=== PATIENT | male | born 2000 | race Caucasian/White ===

== ENCOUNTER 2023-05-15 15:38 | Emergency (ER) | payer SELFPAY ==
[2023-05-15 15:49] VITALS: BP 123/67; PULSE 101; RESP 16; TEMP 36.9; O2SAT 100
--- NOTE | 2023-05-15 15:59 | ED.NAVMDI ---
HPI - Nausea/Vomiting/Diarrhea General Chief complaint: Nausea/Vomiting/Diarrhea Stated complaint: Vomiting/Diarrhea History of Present Illness HPI Narrative: Patient presents with nausea vomiting and diarrhea this started after eating at a Turkish restaurant last night. Patient states he is scheduled to work tomorrow and is not sure that he will be able to go to work. Patient reports tolerating liquids well at present. Related Data Allergies Allergy/AdvReac Type Severity Reaction Status Date / Time No Known Allergies Allergy Verified 05/15/23 15:57 Review of Systems Review of Systems: CONSTITUTIONAL: Denies fever, chills, or sweats. EYES: Denies visual changes, redness, or discharge. ENT: Denies rhinorrhea, congestion, sore throat, or otalgia. CARDIOVASCULAR: Denies chest pain, palpitations, or edema. RESPIRATORY: Denies cough or dyspnea. GASTROINTESTINAL: Denies abdominal pain, nausea, vomiting, or diarrhea. GENITOURINARY: Denies dysuria or hematuria. SKIN: Denies rash or itching. MUSCULOSKELETAL: Denies back pain, joint pain, or myalgia. NEUROLOGIC: Denies headache, numbness, or weakness. PSYCHIATRIC: Denies anxiety or depression. PMFSH Comments At time of signature, agree with nursing past medical, surgical, social and family history. There is no relevant family history pertinent to the presenting complaint Exam Narrative: GENERAL: Well-appearing, well-nourished, and in no acute distress. HEAD: Normocephalic, atraumatic. EYES: PERRLA and EOMI. ENT: Nares clear, no rhinorrhea or epistaxis. Mucous membranes moist. NECK: Supple. CHEST: Clear to auscultation. No respiratory distress. HEART: Regular rate and rhythm. No murmur heard. Normal peripheral pulses. ABDOMEN: Soft, nontender, nondistended, normal active bowel sounds. EXTREMITIES: Normal range of motion. No edema. SKIN: Warm, dry, no rash. NEURO: No focal deficits. Alert and oriented x3. [place] Coma Scale Eye Opening: Spontaneous 4 [place] Coma Scale Motor: Obeys Commands 6 [place] Coma Scale Verbal: Oriented 5 Jennifer Coma Scale Total 15 Course Course Level of Care: Express Care Visit Vital Signs Vital signs: Vital Signs Temperature 36.9 C 05/15/23 15:49 Pulse Rate 101 H 05/15/23 15:49 Respiratory Rate 16 05/15/23 15:49 Blood Pressure 123/67 05/15/23 15:49 Pulse Oximetry 100 05/15/23 15:49 Oxygen Delivery Room Air 05/15/23 15:49 Temperature 36.9 C 05/15/23 15:49 Pulse Rate 101 H 05/15/23 15:49 Respiratory Rate 16 05/15/23 15:49 Blood Pressure 123/67 05/15/23 15:49 Pulse Oximetry 100 05/15/23 15:49 Oxygen Delivery Room Air 05/15/23 15:49 Discharge Plan Discharge Clinical Impression: Nausea & vomiting Patient Disposition: Home, Self-Care Condition: Stable Instructions: Acute Nausea and Vomiting (DC) Additional Instructions: Clear liquids for the next 8-10 hours, then advance to a bland diet as tolerated A bland diet can consist of--BRAT diet which is bananas, rice, applesauce, and toast Avoid fried, greasy, fatty, fried foods Avoid caffeine, nicotine, and alcohol Return to your regular diet in the next 3-4 days Medication as directed for nausea and vomiting -If you have any worsening of symptoms or any other concerns please go to the ED immediately. Prescriptions: New omeprazole 40 mg capsule,delayed release(DR/EC) 40 mg PO DAILY Qty: 30 0RF Follow-up/Referrals: PHYSICIAN,PUBLIC RECORDS RESEARCHER [Primary Care Provider] - Stand Alone Forms: Work/School Release IP
== END 2023-05-15 16:08 | disposition home or self-care (01) ==
PROVIDERS: Emergency Provider Nurse Practitioner Family
DX: R11.2 Nausea with vomiting, unspecified (principal)
CPT/HCPCS: 99213; G0463

== ENCOUNTER 2024-08-17 20:22 | Emergency (ER) | payer BC, SELFPAY ==
[2024-08-17 20:23] VITALS: BP 119/80; PULSE 73; RESP 14; TEMP 36.6; O2SAT 98
--- OUTSIDE RECORDS SUMMARY | 2024-08-17 20:25 | XMS_ITS | Clinical Summary ---
Author Organization [facility] Address [address] [place] [address] Phone Care Team Providers Care Yard Worker Name Role Phone Jeramy Mccartney MD Primary Care Provider Allergies No known active allergies Medications OMEPRAZOLE PO Take by mouth daily. Active Social History Tobacco Use Types Packs/Day Years Used Date Smoking Tobacco: Never Smokeless Tobacco: Never Alcohol Use Standard Drinks/Week Comments No 0 (1 standard drink = 0.6 oz pur e alcohol) Sex and Gender Information Value Date Recorded Sex Assigned at Not on file Legal Sex Male 8:13 PM CDT Gender Identity Not on file Sexual Orientation Not on file Last Filed Vital Signs Vital Sign Reading Time Taken Comments Blood Pressure 124/84 06/12/2018 7:29 PM CUPOLA TAPPER Pulse 96 06/12/2018 7:29 PM CUPOLA TAPPER Temperature 37.4 C (99.4 F) 06/12/2018 6:50 PM CUPOLA TAPPER Respiratory Rate 18 06/12/2018 7:29 PM CUPOLA TAPPER Oxygen Saturation 98% 06/12/2018 7:29 PM CUPOLA TAPPER Inhaled Oxygen Concentration - - Weight 71.2 kg (157 lb) 06/12/2018 6:50 PM CUPOLA TAPPER Height 174 cm (5' 8.5 ) 06/12/2018 6:50 PM CUPOLA TAPPER Body Mass Index 23.52 06/12/2018 6:50 PM CUPOLA TAPPER Plan of Treatment Health Maintenance Due Date Last Done Comments Hepatitis C Virus (HCV) Screening 2001 Human Papillomavirus (HPV) Immunization (1 - Male 3-dose series) 2016 Meningococcal B Immunization (2 of 2 - Bexsero SCDM 2-dose series) 04/07/2019 10/06/2018 Influenza Immunization (#1) 2023 02/11/2012 SARS-COV-2 Immunization (3 - 2023-25 season) 2023 10/07/2020, 09/16/2020 Respiratory Syncytial Virus (RSV) Immunization (Adult) (1 - 1-dose 75+ series) 2076 Hepatitis B Immunization Completed 002, 2001, 2001, Additional history exists Pneumococcal Immunization Combined Aged Out 05/18/2004, 11/16/2002, 2001, Additional history exists No longer eligible based on patient's age to complete this topic Hepatitis A Immunization Discontinued 006, 07/08/2005, 05/18/2004, Additional history exists Measles Mumps Rubella (MMR) Immunization Discontinued 08/19/2005, 05/29/2002 Polio (IPV) Immunization Discontinued 05/20/2006 Varicella Immunization Discontinued 05/20/2006, 2002 DTaP/Tdap/Td Immunization Discontinued 2011, 05/20/2006, 08/20/2002, Additional history exists TdaP Immunization Completed 12/03/2011 Meningococcal Immunization (ACWY) Completed 02/10/2018, 09/15/2012 Rotavirus Immunization Aged Out No lo nger eligible based on patient's age to complete this topic Insurance MEDICAID [facility] [employer] Care Teams Yard Worker Relationship Specialty Start Date End Date Jeramy Mccartney MD [address] [place] [address] PCP - General Pediatrics 12/28/17
--- OUTSIDE RECORDS SUMMARY | 2024-08-17 20:25 | XMS_ITS | Clinical Summary ---
Author Organization [facility] Address [address] [place] [address] Care Team Providers Care Maintenance Technician Name Role Phone Sameer Lee MD Primary Care Provider [phone] Allergies No known active allergies Medications No known medications Active Problems Problem Noted Date Diagnosed Date BMI (body mass index), pedia tric, greater than or equal to 95% for age 0710/24/2015 Resolved Problems Problem Noted Date Diagnosed Date Resolved Date BMI (body mass index), pedia tric, 85% to less than 95% for age 0105/15/2014 10/24/2015 Immunizations Immunization Administration Dates Next Due (ADACEL/BOOSTRIX)(10 YR UP) TDAP VACCINE, 0.5ML, IM 12/03/2011 (GARDASIL)(9-45 YRS) HUMAN PAPILLOMAVIRUS VACCINE, TYPES 6, 11, 16, 18, QUADRIVALENT (4VHPV), 3 DOSE, IM 07/26/2014,2014 (INFANRIX)(6 WKS-6 YRS) DIPT HERIA, TETANUS TOXOIDS, AND ACCELLULAR PERTUSSIS VACCINE (DTAP), 0.5 ML IM 05/20/2006,08/20/2002,02/13/2002,11/21,2001 (IPOL)(6 WKS AND UP) POLIOVI ABELINO VACCINE, INACTIVATED (IPV), 3 DOSE, SUBCUT OR IM 05/20/2006,11/16/2002,2001,08/22 (M-M-R II/PRIORIX)(12 MO UP) MEASLES, MUMPS AND RUBELLA VIRUS VACCINE, 0.5 ML IM/SUBCUT 08/19/2005,05/29/2002 (VARIVAX)(12 MOS UP)VARICELL A VIRUS VACCINE (PF) 0.5 ML, SUB CUT 05/20/2006,08/20/2002 HIB, Unspecified Formulation 08/20/2002, 02/13/2002,2001,08/22 Hepatitis A Vaccine 07/08/2005,05/18/2004 Hepatitis B Vaccine 2001,2001,2001 Influenza Seasonal Unspecifi ed Formulation IM 03/23/2006,04/14/2005 Meningococcal A Conjugate Vaccine IM 2014 PREVNAR (PCV13) pneumococcal 13-valent conjugate Vaccine 05/18/2004,11/16/2002,2001,08/22 Family History Medical History Relation Name Comments Cancer Maternal Grandmother Relation Name Status Comments Maternal Grandmother Social History Tobacco Use Types Packs/Day Years Used Date Smoking Tobacco: Never Smokeless Tobacco: Never Sex and Gender Information Value Date Recorded Sex Assigned at Not on file Legal Sex Male 12:39 PM ENVIRONMENTAL SCIENCE PROGRAM DIRECTOR Gender Identity Not on file Sexual Orientation Not on file Last Filed Vital Signs Vital Sign Reading Time Taken Comments Blood Pressure 119/72 10/24/2015 10:58 AM CDT Pulse 75 10/24/2015 10:58 AM CDT Temperature 36.7 C (98.1 F) 10/24/2015 10:58 AM CDT Respiratory Rate - - Oxygen Saturation - - Inhaled Oxygen Concentration - - Weight 73 kg (161 lb) 10/24/2015 10:58 AM CDT Height 165.1 cm (5' 5 ) 10/24/2015 10:58 AM CDT Body Mass Index 26.79 10/24/2015 10:58 AM CDT Plan of Treatment Health Maintenance Due Date Last Done Comments HPV VACCINES (3 - Male 2-dos e series) 11/12/2014 07/26/2014, 2014 DTAP/TDAP/TD VACCINES (7 - T d or Tdap) 12/02/2021 12/03/2011, 05/20/2006, 08/20/2002, Additional history exists INFLUENZA VACCINE (#1) 2023 03/23/2006, 2004 HEPATITIS B VACCINES Completed 2001, 2001, 2001 Care Teams Maintenance Technician Relationship Specialty Start Date End Date Sameer Lee MD PCP - General Pediatrics 05/15/14
--- OUTSIDE RECORDS SUMMARY | 2024-08-17 20:25 | XMS_ITS | Patient Health Record ---
Author Organization [facility] Address [address] [place] [address] Care Team Providers Care Teaching Specialists Name Role Phone Balbir Sierra Primary Care Provider Allergies No Known Allergies Reason For Referral No Information Medications Medication SIG (Take, Route, Fr equency, Duration) Notes Start Date End Date Status lamoTRIgine ER 50 MG 1 tablet Orally Onc e a day for 30 days Active lamoTRIgine 25 MG as directed Orally a s directed for 15 day(s) 08/17/2021 Active lamoTRIgine 50 MG 1 tablet Orally Once a day for 30 day(s) 08/17/2021 Active hydrOXYzine HCl 25 MG 1-2 tablets prn an xiety Orally every 8 hrs for 30 day(s) Active Social History Tobacco Use: Social History Observation Description Date Details (start date - stop date) Unknown Sex Assigned At : Social History Observation Description Sex Assigned At Male Dont use, Tobacco Use/Smoking Question Answer Notes Are you a Uses tobacco in other forms Additional Findings: Tobacco User e-Cigarette Problems Problem Type SNOMED Code ICD Code Onset Dates Problem Status W/U Status Risk Notes Problem Generalized anxiety disorder (42983017) Generalized anxiety disorder (F41.1) Active confirmed Problem Vitamin D deficiency (51643998) Vitamin D insufficiency (E55.9) Active confirmed Problem Mood disorder (33292002) Mood disorder (F39) Active confirmed BIPOLAR II LIKELY Plan Of Treatment No Information Insurance Providers Payer Name Payer Address Payer Phone Subscriber Number Group Number Insured Name Patient Relationship to Insured Coverage Start Date Coverage End Date [employer] [address] [place] [address] [id number] Rickey Castellanos Self - patient is the insured 2 [employer] (Group) [address] [place] [address] [id number] Rickey Castellanos Self - patient is the insured 2 Medical (General) History Surgical History Surgery Date(Month/Year)
--- OUTSIDE RECORDS SUMMARY | 2024-08-17 20:25 | XMS_ITS | Clinical Summary ---
Author Organization [address] Address [address] [place] [phone] Care Team Providers Care Bundle Sorter Name Role Phone Silvia Lopez NP Primary Care Provider [phone] Allergies No known active allergies Medications No known medications Active Problems Problem Noted Date Diagnosed Date RUQ abdominal pain 05/26/2023 Assessment & Plan (05/26/2023 2:22 PM COMPLIANCE SPECIALIST): Acute right upper quadrant pain is resolved at present Abdomen is benzol still operator to palpation Discussed gallbladder dysfunction and need to restrict fats in the diet. Instructed to seek treatment if the symptoms resume and if they are intense to go to the emergency room He did not want any labs done or an ultrasound ordered Class 1 obesity due to exces s calories without serious comorbidity with body mass index (BMI) of 30.0 to 30.9 in adult 05/26/2023 Assessment & Plan (05/26/2023 2:19 PM COMPLIANCE SPECIALIST): BMI 30.09 Discussed diet and exercise Recommend weight loss Generalized anxiety disorder 05/23/2023 Mood disorder 05/23/2023 Vitamin D deficiency 05/23/2023 Sternum pain 11/22/2019 Fall 11/22/2019 Immunizations Immunization Administration Dates Next Due DTaP 05/20/2006, 3,02/13/2002,11/21,2001 HPV, Quadrivalent 07/26/2014,2014 Hep A, Adult 07/08/2005,05/18/2004 Hep A, Unspecified 07/08/2005,05/18/2004 Hep B Vaccine 2001,2001,2001 Hep B, Unspecified 2001,2001, 002 HiB 08/20/2002, 2,2001,08/22 IPV 05/20/2006, 3,2001,08/22 Influenza, Trivalent, IM (MDV) 03/23/2006,2004 Influenza, Unspecified 05/24/2024(Deferr ed: Patient Refused),01/30/2024(Deferred: Patient Refused),05/26/2023(Deferred: Patient Refused),04/04/2023(Deferred: Patient Refused),02/11/2012 MMR 08/19/2005,05/29/2002 Meningococcal B, OMV (Bexsero) 10/06/2018 Meningococcal Conjugate (Menveo) 2014 Meningococcal MCV4P (Menactra) 02/10/2018 Meningococcal Polysaccharide (Menomune) 09/15/2012 Pneumococcal Conjugate 7-Valent 05/18/19 05,11/16/2002,2001,08/22 Pneumococcal Conjugate PCV 13 05/18/2004 ,11/16/2002,2001,08/22 Polio, Unspecified 11/16/2002,2001, 002 Tdap 12/03/2011 Varicella 05/20/2006,08/20/2002 Medical History Medical History Date Comments GERD (gastroesophageal reflux disease) Social History Tobacco Use Types Packs/Day Years Used Date Smoking Tobacco: Former Cigarettes Smokeless Tobacco: Never Tobacco Cessation:Counseling Given: Not Answered Alcohol Use Standard Drinks/Week Comments Yes 0 (1 standard drink = 0.6 oz pur e alcohol) AUDIT-C Answer Date Recorded Q1: How often do you have a drink containing alc ohol? Monthly or less 05/26/2023 Q2: How many drinks containi ng alcohol do you have on a typical day when you are drinking? 1 or 2 05/26/2023 Q3: How often do you have si x or more drinks on one occasion? Never 05/26/2023 PHQ-2 Answer Date Recorded PHQ-2 Total Score (If total score is 3 or more points, staff should administer the PHQ-9) 0 05/26/2023 Personal Safety Answer Date Recorded Have you ever been in or are you currently in a harmful physical or emotional relationship or is someone making you feel afraid or unsafe? Denies 05/05/2023 Sex and Gender Information Value Date Recorded Sex Assigned at Not on file Legal Sex Male 9:18 AM COMPLIANCE SPECIALIST Gender Identity Not on file Sexual Orientation Not on file Obstetrics History Last Filed Vital Signs Vital Sign Reading Time Taken Comments Blood Pressure 120/80 05/26/2023 1:51 PM COMPLIANCE SPECIALIST Pulse 71 05/26/2023 1:51 PM COMPLIANCE SPECIALIST Temperature 36.6 C (97.8 F) 05/26/2023 1:51 PM COMPLIANCE SPECIALIST Respiratory Rate 16 05/05/2023 9:15 AM COMPLIANCE SPECIALIST Oxygen Saturation 98% 05/26/2023 1:51 PM COMPLIANCE SPECIALIST Inhaled Oxygen Concentration - - Weight 100.7 kg (221 lb 14.4 oz) 05/26/2023 1:51 PM COMPLIANCE SPECIALIST Height 182.9 cm (6' 0.01 ) 05/26/2023 1:51 PM CS T Body Mass Index 30.09 05/26/2023 1:51 PM COMPLIANCE SPECIALIST Plan of Treatment Health Maintenance Due Date Last Done Comments HPV Vaccines (3 - Male 2-dose series) 11/12/2014 07/26/2014, 2014 Meningococcal B Vaccine (2 of 2 - Bexsero SCDM 2-dose series) 04/07/2019 10/06/2018 Regular Well Visit/Exam 18-64 2019 DTaP/Tdap/Td Vaccine (7 - Td or Tdap) 12/02/2021 12/03/2011, 05/20/2006, 08/20/2002, Additional history exists Covid-19 Vaccine ( - season) 2023 10/07/2020, 09/16/2020 Depression Screening 05/26/2024 05/26/2023 Influenza Vaccine (#1) 2024 2, 03/23/2006, 04/14/2005 Postponed from 12/25/2023 (Patient declined, but will receive in the future) Hepatitis C Screening 05/26/2025 Postpo marciano from 2001 (Provider's clinical decision) Hepatitis B Screening Completed 2001 , 2001, 2001, Additional history exists Pneumococcal vaccine <65 Completed 005, 05/18/2004, 11/16/2002, Additional history exists Varicella Vaccines Completed 05/20/2006, 08/20/2002 Care Teams Bundle Sorter Relationship Specialty Start Date End Date Silvia Lopez NP [address] [address] PCP - General Electronics Specialist 05/26/23
--- OUTSIDE RECORDS SUMMARY | 2024-08-17 20:25 | XMS_ITS | Referral Summary ---
Author Organization [address] Address [address] [place] [address] Care Team Providers Care Java Performance Engineer Name Role Phone Silvia Lopez NP Primary Care Provider [phone] Allergies No known active allergies Medications No known medications Active Problems Problem Noted Date Diagnosed Date RUQ abdominal pain 05/26/2023 Assessment & Plan (05/26/2023 2:22 PM ADOBE LAYER HELPER): Acute right upper quadrant pain is resolved at present Abdomen is railway head tender to palpation Discussed gallbladder dysfunction and need [...] 05/26/2023 Assessment & Plan (05/26/2023 2:19 PM ADOBE LAYER HELPER): BMI 30.09 Discussed diet and exercise Recommend [...] Unspecified 11/16/2002,2001, 002 Tdap 12/03/2011 Varicella 05/20/2006,08/20/2002 Social History Tobacco Use Types Packs/Day Years [...] on file Legal Sex Male 9:18 AM ADOBE LAYER HELPER Gender Identity Not on file Sexual Orientation Not on file Last Filed Vital Signs Vital Sign Reading Time Taken Comments Blood Pressure 120/80 05/26/2023 1:51 PM ADOBE LAYER HELPER Pulse 71 05/26/2023 1:51 PM ADOBE LAYER HELPER Temperature 36.6 C (97.8 F) 05/26/2023 1:51 PM ADOBE LAYER HELPER Respiratory Rate 16 05/05/2023 9:15 AM ADOBE LAYER HELPER Oxygen Saturation 98% 05/26/2023 1:51 PM ADOBE LAYER HELPER Inhaled Oxygen Concentration - - Weight 100.7 kg (221 lb 14.4 oz) 05/26/2023 1:51 PM ADOBE LAYER HELPER Height 182.9 cm (6' 0.01 ) 05/26/2023 1:51 PM CS T Body Mass Index 30.09 05/26/2023 1:51 PM ADOBE LAYER HELPER Plan of Treatment Not on file Care Teams Java Performance Engineer Relationship Specialty Start Date End Date Silvia Lopez NP [address] [address] PCP - General Eye Care Professional 05/26/23
--- OUTSIDE RECORDS SUMMARY | 2024-08-17 20:57 | XMS_ITS | Clinical Summary ---
Author Organization [facility] Address [address] [place] [address] Care Team Providers Care Underground Drill Operator Name Role Phone Sameer Lee MD Primary Care Provider [phone] Allergies No known active allergies Medications No [...] on file Legal Sex Male 12:39 PM COLLEGE COUNSELOR Gender Identity Not on file Sexual Orientation [...] VACCINES Completed 2001, 2001, 2001 Care Teams Underground Drill Operator Relationship Specialty Start Date End Date Sameer Lee MD PCP - General Pediatrics 05/15/14
--- OUTSIDE RECORDS SUMMARY | 2024-08-17 20:57 | XMS_ITS | Clinical Summary ---
Author Organization [address] Address [address] [place] [phone] Care Team Providers Care Program Aide Name Role Phone Silvia Lopez NP Primary Care Provider [phone] Allergies No known active allergies Medications No known medications Active Problems Problem Noted Date Diagnosed Date RUQ abdominal pain 05/26/2023 Assessment & Plan (05/26/2023 2:22 PM TEAMCENTER SOLUTION ARCHITECT): Acute right upper quadrant pain is resolved at present Abdomen is beverage distiller to palpation Discussed gallbladder dysfunction and need [...] 05/26/2023 Assessment & Plan (05/26/2023 2:19 PM TEAMCENTER SOLUTION ARCHITECT): BMI 30.09 Discussed diet and exercise Recommend [...] on file Legal Sex Male 9:18 AM TEAMCENTER SOLUTION ARCHITECT Gender Identity Not on file Sexual Orientation Not on file Obstetrics History Last Filed Vital Signs Vital Sign Reading Time Taken Comments Blood Pressure 120/80 05/26/2023 1:51 PM TEAMCENTER SOLUTION ARCHITECT Pulse 71 05/26/2023 1:51 PM TEAMCENTER SOLUTION ARCHITECT Temperature 36.6 C (97.8 F) 05/26/2023 1:51 PM TEAMCENTER SOLUTION ARCHITECT Respiratory Rate 16 05/05/2023 9:15 AM TEAMCENTER SOLUTION ARCHITECT Oxygen Saturation 98% 05/26/2023 1:51 PM TEAMCENTER SOLUTION ARCHITECT Inhaled Oxygen Concentration - - Weight 100.7 kg (221 lb 14.4 oz) 05/26/2023 1:51 PM TEAMCENTER SOLUTION ARCHITECT Height 182.9 cm (6' 0.01 ) 05/26/2023 1:51 PM CS T Body Mass Index 30.09 05/26/2023 1:51 PM TEAMCENTER SOLUTION ARCHITECT Plan of Treatment Health Maintenance Due Date [...] Varicella Vaccines Completed 05/20/2006, 08/20/2002 Care Teams Program Aide Relationship Specialty Start Date End Date Silvia Lopez NP [address] [address] PCP - General Snow Plow Tractor Operator 05/26/23
--- OUTSIDE RECORDS SUMMARY | 2024-08-17 20:57 | XMS_ITS | Referral Summary ---
Author Organization [address] Address [address] [place] [phone] Care Team Providers Care Mobility Developer Name Role Phone Silvia Lopez NP Primary Care Provider Allergies No known active allergies Medications No known medications Active Problems Problem Noted Date Diagnosed Date RUQ abdominal pain 05/26/2023 Assessment & Plan (05/26/2023 2:22 PM FRONT DESK AUXILIARY): Acute right upper quadrant pain is resolved at present Abdomen is brick tender to palpation Discussed gallbladder dysfunction and [...] 05/26/2023 Assessment & Plan (05/26/2023 2:19 PM FRONT DESK AUXILIARY): BMI 30.09 Discussed diet and exercise Recommend [...] on file Legal Sex Male 9:18 AM FRONT DESK AUXILIARY Gender Identity Not on file Sexual Orientation Not on file Last Filed Vital Signs Vital Sign Reading Time Taken Comments Blood Pressure 120/80 05/26/2023 1:51 PM FRONT DESK AUXILIARY Pulse 71 05/26/2023 1:51 PM FRONT DESK AUXILIARY Temperature 36.6 C (97.8 F) 05/26/2023 1:51 PM FRONT DESK AUXILIARY Respiratory Rate 16 05/05/2023 9:15 AM FRONT DESK AUXILIARY Oxygen Saturation 98% 05/26/2023 1:51 PM FRONT DESK AUXILIARY Inhaled Oxygen Concentration - - Weight 100.7 kg (221 lb 14.4 oz) 05/26/2023 1:51 PM FRONT DESK AUXILIARY Height 182.9 cm (6' 0.01 ) 05/26/2023 1:51 PM CS T Body Mass Index 30.09 05/26/2023 1:51 PM FRONT DESK AUXILIARY Plan of Treatment Not on file Care Teams Mobility Developer Relationship Specialty Start Date End Date Silvia Lopez NP [address] [address] PCP - General Legal Aide 05/26/23
--- OUTSIDE RECORDS SUMMARY | 2024-08-17 20:57 | XMS_ITS | Clinical Summary ---
Author Organization [facility] Address [address] [place] [address] Phone Care Team Providers Care System Safety Manager Name Role Phone Jeramy Mccartney MD Primary [...] Comments Blood Pressure 124/84 06/12/2018 7:29 PM FLORIST'S DECORATOR Pulse 96 06/12/2018 7:29 PM FLORIST'S DECORATOR Temperature 37.4 C (99.4 F) 06/12/2018 6:50 PM FLORIST'S DECORATOR Respiratory Rate 18 06/12/2018 7:29 PM FLORIST'S DECORATOR Oxygen Saturation 98% 06/12/2018 7:29 PM FLORIST'S DECORATOR Inhaled Oxygen Concentration - - Weight 71.2 kg (157 lb) 06/12/2018 6:50 PM FLORIST'S DECORATOR Height 174 cm (5' 8.5 ) 06/12/2018 6:50 PM FLORIST'S DECORATOR Body Mass Index 23.52 06/12/2018 6:50 PM FLORIST'S DECORATOR Plan of Treatment Health Maintenance Due Date [...] PLAN MEDICAID [employer] Care Teams System Safety Manager Relationship Specialty Start Date End Date Jeramy Mccartney MD [address] [place] [address] PCP - General Pediatrics 12/28/17
--- NOTE | 2024-08-17 21:06 | ED_ITS ---
HPI - General Adult General Chief complaint: Skin/Abscess/Foreign Body Stated complaint: ingrown toe nail infection Time Seen by Provider: 08/17/24 20:31 History of Present Illness HPI narrative: This is a 24-year-old male presenting with an ingrown toenail. He had it partially removed at an urgent care however has not recurred. He has been treating it with white man antibiotics no systemic signs of illness. Related Data Allergies Allergy/AdvReac Type Severity Reaction Status Date / Time No Known Allergies Allergy Verified 05/15/23 15:57 Exam Narrative: APPEARANCE: No apparent distress. Head: atraumatic. EYES: EOMI, NOSE: Atraumatic NECK: Trachea midline RESPIRATORY: No increased rate of breathing CARDIOVASCULAR: RRR, ABDOMINAL: Non-distended MUSCULOSKELETAl: Ingrown toenail the inner edge of his right great toe. NEURO: Alert. Moving 4/4 extremities SKIN:: Warm, dry. Normal color PSYCHIATRIC: Normal affect Course Vital Signs Vital signs: Vital Signs Temperature 97.8 F 08/17/24 20:23 Pulse Rate 73 08/17/24 20:23 Respiratory Rate 14 08/17/24 20:23 Blood Pressure 119/80 08/17/24 20:23 Pulse Oximetry 98 08/17/24 20:23 Oxygen Delivery Room Air 08/17/24 20:23 Temperature 97.8 F 08/17/24 20:23 Pulse Rate 73 08/17/24 20:23 Respiratory Rate 14 08/17/24 20:23 Blood Pressure 119/80 08/17/24 20:23 Pulse Oximetry 98 08/17/24 20:23 Oxygen Delivery Room Air 08/17/24 20:23 Procedures Other Procedure Procedure 1: Other Procedure: PROCEDURE: The area surrounding the skin lesion was prepped and draped. r. The patient is placed in the supine position, with the knees extended (foot salazar ging off the end of the table. Digital block was performed using 5 cc of 0.25% bupivacaine which was effective. A sterile tourniquet was applied. Lateral portion of the nail was incised using iris scissors and the incised nail was gently removed using a hemostat.. Wound was dressed and typical manner. No complications. Patient tolerated procedure well. Followup: The patient tolerated the procedure well without complications. Standard post-procedure care is explained and return precautions are given. Medical Decision Making MDM Narrative Medical decision making narrative: -Course: 24-year-old male infected ingrown toenail. Ingrown toenail portion was removed. see procedure note for details. Patient discharged pain medication and antibiotics. Given return precautions. -DDX includes but is not limited to: Ingrown toenail, infected nail fold Vital Signs Vital Signs: Vital Signs Temperature 97.8 F 08/17/24 20:23 Pulse Rate 73 08/17/24 20:23 Respiratory Rate 14 08/17/24 20:23 Blood Pressure 119/80 08/17/24 20:23 Pulse Oximetry 98 08/17/24 20:23 Oxygen Delivery Room Air 08/17/24 20:23 Temperature 97.8 F 08/17/24 20:23 Pulse Rate 73 08/17/24 20:23 Respiratory Rate 14 08/17/24 20:23 Blood Pressure 119/80 08/17/24 20:23 Pulse Oximetry 98 08/17/24 20:23 Oxygen Delivery Room Air 08/17/24 20:23 Discharge Plan Discharge Clinical Impression: Ingrown toenail Patient Disposition: Home Condition: Stable Instructions: Antibiotic Form, Ingrown Nail (ED) Additional Instructions: Please keep your toenail clean and dry. You can use a topical antibiotic ointment during the day. When you get home please clean it and allow it to breathe for 2 hours before re-dressing it. If you develop signs of infection such as increased redness, swelling, pain, or purulent discharge please return to ED for re-evaluation. Please take the antibiotics and pain medication as instructed. Patient Language: Jordanian Prescriptions: New ibuprofen 800 mg tablet 800 mg PO TID PRN (Reason: pain) 7 Days Qty: 21 0RF acetaminophen 500 mg tablet 1,000 mg PO TID PRN (Reason: nancy) 7 Days Qty: 42 0RF oxycodone 5 mg tablet 5 mg PO Q4H PRN (Reason: pain) Qty: 14 0RF cephalexin 500 mg capsule 500 mg PO Q12H Qty: 14 0RF No Action omeprazole 40 mg capsule,delayed release(DR/EC) 40 mg PO DAILY Qty: 30 0RF Follow-up/Referrals: PHYSICIAN,PRINCIPAL MECHANICAL ENGINEER [Primary Care Provider] -
[2024-08-17] MEDS: ACETAMINOPHEN 500 MG TABLET 1000 MG PO (21:25)
[2024-08-17] MEDS: IBUPROFEN 400 MG TABLET 800 MG PO (21:25)
[2024-08-17 22:06] VITALS: BP 112/84; PULSE 84; RESP 13; O2SAT 100
[2024-08-17 22:07] VITALS: BP 112/84; PULSE 84; RESP 13; O2SAT 100
== END 2024-08-17 22:10 | disposition home or self-care (01) ==
PROVIDERS: Emergency Provider Emergency Medicine
DX: L60.0 Ingrowing nail (principal)
CPT/HCPCS: 11720; 99283; A9270

== ENCOUNTER 2024-10-10 14:19 | Outpatient (CLI) | payer BC, SELFPAY ==
[2024-10-10 14:37] LABS: Hematocrit 44.9 % (42.0-52.0); Hemoglobin 15.2 g/dL (14.0-18.0); Mean Corpuscular HGB Conc 33.9 g/dl (32-36); Mean Corpuscular Hemoglobin 29.8 pg (26-34); Mean Platelet Volume 9.8 fl (7.4-10.4); Platelet Count Result 297 k/mm3 (150-375); Red Cell Distribution Width 12.3 % (11.5-14.5); White Blood Count 7.7 K/mm3 (4.5-10.0)
[2024-10-10 15:23] LABS: Alanine Aminotransferase 31 U/L (6-50); Albumin Level 4.3 g/dL (3.5-5.1); Alkaline Phosphatase 92 U/L (38-126); Anion Gap 7 mmol/L (4-12); Aspartate Amino Transferase 28 U/L (17-59); Bilirubin,Total 0.4 mg/dL (0.2-1.3); Blood Urea Nitrogen 18 mg/dL (9-20); Carbon Dioxide 27 mmol/L (22-30); Chloride 105 mmol/L (98-107); Estimated Glomerular Filt Rate > 60; Glucose 109 mg/dL (65-110); Potassium 3.9 mmol/L (3.4-5.0); Sodium 139 mmol/L (137-145); Total Protein 7.5 g/dL (6.3-8.2)
--- OUTSIDE RECORDS SUMMARY | 2024-10-10 16:16 | XMS_ITS | Referral Summary ---
Author Organization [address] Address [address] [place] [address] Care Team Providers Care Navy Fighter Pilot Name Role Phone Silvia Lopez NP Primary Care Provider [phone] Allergies No known active allergies Medications No known medications Active Problems Problem Noted Date Diagnosed Date RUQ abdominal pain 05/26/2023 Assessment & Plan (05/26/2023 2:22 PM TRANSFORMATION COACH): Acute right upper quadrant pain is resolved at present Abdomen is lead mason tender to palpation Discussed gallbladder dysfunction and [...] 05/26/2023 Assessment & Plan (05/26/2023 2:19 PM TRANSFORMATION COACH): BMI 30.09 Discussed diet and exercise Recommend [...] on file Legal Sex Male 9:18 AM TRANSFORMATION COACH Gender Identity Not on file Sexual Orientation Not on file Last Filed Vital Signs Vital Sign Reading Time Taken Comments Blood Pressure 120/80 05/26/2023 1:51 PM TRANSFORMATION COACH Pulse 71 05/26/2023 1:51 PM TRANSFORMATION COACH Temperature 36.6 C (97.8 F) 05/26/2023 1:51 PM TRANSFORMATION COACH Respiratory Rate 16 05/05/2023 9:15 AM TRANSFORMATION COACH Oxygen Saturation 98% 05/26/2023 1:51 PM TRANSFORMATION COACH Inhaled Oxygen Concentration - - Weight 100.7 kg (221 lb 14.4 oz) 05/26/2023 1:51 PM TRANSFORMATION COACH Height 182.9 cm (6' 0.01) 05/26/2023 1:51 PM CS T Body Mass Index 30.09 05/26/2023 1:51 PM TRANSFORMATION COACH Plan of Treatment Not on file Care Teams Navy Fighter Pilot Relationship Specialty Start Date End Date Silvia Lopez NP [address] [address] PCP - General Marketing Development Representative 05/26/23
--- OUTSIDE RECORDS SUMMARY | 2024-10-10 16:16 | XMS_ITS | Clinical Summary ---
Author Organization [address] Address [address] [place] [phone] Care Team Providers Care Chairlift Operator Name Role Phone Silvia Lopez NP Primary Care Provider [phone] Allergies No known active allergies Medications No known medications Active Problems Problem Noted Date Diagnosed Date RUQ abdominal pain 05/26/2023 Assessment & Plan (05/26/2023 2:22 PM PATTERN DRAFTER): Acute right upper quadrant pain is resolved at present Abdomen is black oxide coating equipment tender to palpation Discussed gallbladder dysfunction and [...] 05/26/2023 Assessment & Plan (05/26/2023 2:19 PM PATTERN DRAFTER): BMI 30.09 Discussed diet and exercise Recommend [...] on file Legal Sex Male 9:18 AM PATTERN DRAFTER Gender Identity Not on file Sexual Orientation Not on file Obstetrics History Last Filed Vital Signs Vital Sign Reading Time Taken Comments Blood Pressure 120/80 05/26/2023 1:51 PM PATTERN DRAFTER Pulse 71 05/26/2023 1:51 PM PATTERN DRAFTER Temperature 36.6 C (97.8 F) 05/26/2023 1:51 PM PATTERN DRAFTER Respiratory Rate 16 05/05/2023 9:15 AM PATTERN DRAFTER Oxygen Saturation 98% 05/26/2023 1:51 PM PATTERN DRAFTER Inhaled Oxygen Concentration - - Weight 100.7 kg (221 lb 14.4 oz) 05/26/2023 1:51 PM PATTERN DRAFTER Height 182.9 cm (6' 0.01) 05/26/2023 1:51 PM CS T Body Mass Index 30.09 05/26/2023 1:51 PM PATTERN DRAFTER Plan of Treatment Health Maintenance Due Date [...] 09/16/2020 Depression Screening 05/26/2024 05/26/2023 Influenza Vaccine (Season Ended) 2024 02/11/2012, 03/23/2006, 04/14/2005 Hepatitis C Screening 05/26/2025 Postpo marciano from 2001 (Provider's clinical decision) Hepatitis B Screening Completed 2001 , 2001, 2001, Additional history exists Pneumococcal vaccine <65 Completed 005, 05/18/2004, 11/16/2002, Additional history exists Varicella Vaccines Completed 05/20/2006, 08/20/2002 Care Teams Chairlift Operator Relationship Specialty Start Date End Date Silvia Lopez NP [address] [facility] [address] [place] [address] PCP - General Client Development Manager 05/26/23
--- OUTSIDE RECORDS SUMMARY | 2024-10-10 16:16 | XMS_ITS | Clinical Summary ---
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 ASSEMBLER Gender Identity Not on file Sexual Orientation [...] 10:58 AM CDT Height 165.1 cm (5' 5) 10/24/2015 10:58 AM CDT Body Mass Index 26.79 10/24/2015 10:58 AM CDT Plan of Treatment Health Maintenance Due Date Last Done Comments HPV VACCINES (3 - Male 2-dos e series) 11/12/2014 07/26/2014, 2014 DTAP/TDAP/TD VACCINES (7 - T d or Tdap) 12/02/2021 12/03/2011, 05/20/2006, 08/20/2002, Additional history exists INFLUENZA VACCINE (#1) 2023 03/23/2006, 2004 HEPATITIS B VACCINES Completed 2001, 2001, 2001 Care Teams Strategic Debriefing Officer Relationship Specialty Start Date End Date Sameer Lee MD PCP - General Pediatrics 05/15/14
--- OUTSIDE RECORDS SUMMARY | 2024-10-10 16:17 | XMS_ITS | Patient Health Record ---
Author Organization [facility] Address [address] [place] [address] Care Team Providers Care Chalk Molding Machine Operator Name Role Phone Balbir Sierra Primary Care Provider [phone] Allergies No Known Allergies Reason For Referral [...] Status Risk Notes Problem Generalized anxiety disorder (11058277) Generalized anxiety disorder (F41.1) Active confirmed Problem Vitamin D insufficiency (E55.9) Active confirmed Problem Mood disorder (59699257) Mood disorder (F39) Active confirmed BIPOLAR II LIKELY Plan Of Treatment No Information Insurance Providers Payer Name Payer Address Payer Phone Subscriber Number Group Number Insured Name Patient Relationship to Insured Coverage Start Date Coverage End Date [employer] [address] [place] [address] [id number] Rickey Castellanos Self - patient is the insured 2 [employer] [address] [place] [address] [id number] Rickey Castellanos Self - patient is the insured 2 Medical (General) History Surgical History Surgery Date(Month/Year)
--- OUTSIDE RECORDS SUMMARY | 2024-10-10 16:17 | XMS_ITS | Clinical Summary ---
Author Organization [facility] Address [address] [place] [address] Phone Care Team Providers Care Banbury Mixer Operator Name Role Phone Jeramy Mccartney MD Primary [...] Comments Blood Pressure 124/84 06/12/2018 7:29 PM COMPRESSOR STATION OPERATOR Pulse 96 06/12/2018 7:29 PM COMPRESSOR STATION OPERATOR Temperature 37.4 C (99.4 F) 06/12/2018 6:50 PM COMPRESSOR STATION OPERATOR Respiratory Rate 18 06/12/2018 7:29 PM COMPRESSOR STATION OPERATOR Oxygen Saturation 98% 06/12/2018 7:29 PM COMPRESSOR STATION OPERATOR Inhaled Oxygen Concentration - - Weight 71.2 kg (157 lb) 06/12/2018 6:50 PM COMPRESSOR STATION OPERATOR Height 174 cm (5' 8.5) 06/12/2018 6:50 PM COMPRESSOR STATION OPERATOR Body Mass Index 23.52 06/12/2018 6:50 PM COMPRESSOR STATION OPERATOR Plan of Treatment Health Maintenance Due Date Last Done Comments Hepatitis C Virus (HCV) Screening 2001 Human Papillomavirus (HPV) Immunization (1 - Male 3-dose series) 2016 Meningococcal B Immunization (2 of 2 - Bexsero SCDM 2-dose series) 04/07/2019 10/06/2018 SARS-COV-2 Immunization ( season) 2023 10/07/2020, 09/16/2020 Influenza Immunization (Season Ended) 2024 02/11/2012 Respiratory Syncytial Virus (RSV) Immunization (Adult) (1 [...] PLAN MEDICAID [facility] Care Teams Banbury Mixer Operator Relationship Specialty Start Date End Date Jeramy Mccartney MD [address] [place] [address] PCP - General Pediatrics 12/28/17
[2024-10-10 17:14] LABS: Hemoglobin A1C 5.1 % (<5.7)
== END 2024-10-10 14:20 | disposition home or self-care (01) ==
PROVIDERS: PCP Nurse Practitioner Family; Visit Provider Nurse Practitioner Family
DX: Z00.00 Encounter for general adult medical examination without abnormal findings (principal); Z13.228 Encounter for screening for other metabolic disorders; Z13.0 Encounter for screening for diseases of the blood and blood-forming organs and certain disorders involving the immune mechanism; Z13.1 Encounter for screening for diabetes mellitus; Z76.89 Persons encountering health services in other specified circumstances; K21.9 Gastro-esophageal reflux disease without esophagitis; E78.5 Hyperlipidemia, unspecified; E66.811 Obesity, class 1
CPT/HCPCS: 36415; 80053; 83036; 85027

== ENCOUNTER 2025-01-18 19:31 | Emergency (ER) | payer BC, SELFPAY ==
--- OUTSIDE RECORDS SUMMARY | 2025-01-17 08:45 | XMS_ITS ---
Author Organization [facility] Address [address] [place] [address] [address] Care Team Providers Care Sewing Room Supervisor Name Role Phone Kaycee Pisano APRN Primary Care Provider Tammi Caro Unavailable [phone] REASON FOR VISIT No calls or messages Social History Sex Assigned At : Social History Observation Description Sex Assigned At Male Encounters Encounter Location Date Provider Diagnosis [facility] [address] [address] 01/17/2025 Tammi Galan Plan Of Treatment No Information Progress Notes * Rickey WHALEN MDOB:2000 ( 24 yo M)Acc No.[id number]:01/17/2025 Patient: Rickey Esqueda Provider: EDINSON MARIE :2000 A ge:24 Y S ex:Male Date:01/17/2025 Address:[address] [place], [place] [id number] Pcp:Kaycee Pisano APRN Subjective: * Chief Complaints: * 1 . No calls or messages. Plan: * Procedure Codes: N S NO SHOW Billing Information: * Procedure Codes: NS NO SHOW. * Sign off status: Completed true * Provider: EDINSON MARIE Date: 0 01/17/2025 Generated for Georgei rogers/Rianna/eTransmitting on: 01/18/2025 07:33 PM CDT
--- OUTSIDE RECORDS SUMMARY | 2025-01-18 19:34 | XMS_ITS | Patient Health Record ---
Author Organization [facility] Address [address] [place] [address] Care Team Providers Care Crusher Loader Operator Name Role Phone Balbir Sierra Primary Care Provider Allergies No Known Allergies Reason For Referral No Information Medications Medication SIG (Take, Route, Fr equency, Duration) Notes Start Date End Date Status lamoTRIgine ER 50 MG 1 tablet Orally Onc e a day; Duration: 30 days Active lamoTRIgine 25 MG as directed Orally a s directed; Duration: 15 day(s) 08/17/2021 Ac tive lamoTRIgine 50 MG 1 tablet Orally Once a day; Duration: 30 day(s) 08/17/2021 Active hydrOXYzine HCl 25 MG 1-2 tablets prn an xiety Orally every 8 hrs; Duration: 30 day(s) Active Social History Tobacco Use: [...] Status Risk Notes Problem Generalized anxiety disorder (96198166) Generalized anxiety disorder (F41.1) Active confirmed Problem Vitamin D deficiency (25605495) Vitamin D insufficiency (E55.9) Active confirmed Problem Mood disorder (18384198) Mood disorder (F39) Active confirmed BIPOLAR II LIKELY Plan Of Treatment No Information Insurance Providers Payer Name Payer Address Payer Phone Subscriber Number Group Number Insured Name Patient Relationship to Insured Coverage Start Date Coverage End Date [address] [address] [id number] Rickey Castellanos Self - patient is the insured 2 [employer] [address] [place] [address] [id number] Rickey Castellanos Self - patient is the insured 2 Medical (General) History Surgical History Surgery Date(Month/Year)
--- OUTSIDE RECORDS SUMMARY | 2025-01-18 19:34 | XMS_ITS | Clinical Summary ---
Author Organization [facility] Address [address] [place] [address] Care Team Providers Care Dining Room Supervisor Name Role Phone Sameer Lee MD Primary Care Provider [phone] Allergies No known active allergies Medications No [...] on file Legal Sex Male 12:39 PM RANGE CONSERVATIONIST Gender Identity Not on file Sexual Orientation [...] 08/20/2002, Additional history exists INFLUENZA VACCINE (#1) 2024 03/23/2006, 2004 HEPATITIS B VACCINES Completed 2001, 2001, 2001 Care Teams Dining Room Supervisor Relationship Specialty Start Date End Date Sameer Lee MD PCP - General Pediatrics 05/15/14
--- OUTSIDE RECORDS SUMMARY | 2025-01-18 19:34 | XMS_ITS | Patient Health Record ---
Author Organization [facility] [employer] Address [address] [place] [address] Care Team Providers Care Loftsman/Woman Name Role Phone Kaycee Pisnao APRN Primary Care Provider Tammi Caro Unavailable [phone] Qasimindu Eva Unavailable [phone] Charli Tavares Unavailable [phone] Allergies No Known Allergies Results Component Value Reference Range Notes UDT Reviewed date:11/09/2024 10:22:08 AM Interpretation: Performing Lab: Notes/Report: THC n 0 - 50 ng/ml Cocaine n 0 - 300 ng/ml Amphetamine n 0 - 1000 ng/ml Buprenorphine (BUP) n 0 - 10 ng/ml Secobarbital (Bar) n 0 - 300 ng/ml Oxazepam (BZO) n 0 - 300 ng/ml 5-zbqkiffiph-5,3-odduorbi-0,3-diphenylpyrrolidine (MAR P) n 0 - 300 ng/ml Methamphetamine (MET) n 0 - 1000 ng/ml Methylenedioxymethamphetamine (MDMA) n 0 - 500 ng/ml Morphine (MOP 300/[id number]) n 0 - 300 ng/ml Methadone (MTD) n 0 - 300 ng/ml Phencyclidine (PCP) n 0 - 25 ng/ml Nortriptyline (TCA) n 0 - 1000 ng/ml Oxycodone n 0 - 300 ng/ml x n 0 - 300 ng/ml Reason For Referral No Information Medications Medication SIG (Take, Route, Frequency, Duration) Notes Start Date End Date Status Atomoxetine HCl 25 MG Capsule 1 capsule Oral once a day; Duration: 30 days 12/06/2024 02/04/2025 Active hydrOXYzine Pamoate 25 MG Capsule TAKE 1 CAPSULE BY MOUTH 4 TIMES DAILY NEEDED FOR ANXIETY Oral; Duration: 7 Days Active Omeprazole 40 MG Capsule Delayed Release Oral; Duration: 60 Days A ctive Sertraline HCl 25 MG Tablet 1 tablet Orally Once a day; Duration: 90 days Active Social History Tobacco Use: Social History Observation Description Date Details (start date - stop date) Never Smoker NA - NA Sex Assigned At : Social History Observation Description Sex Assigned At Male Social History Miscellaneous: Social Info Question Answer Notes Safety issues: Are there any firearms in the house? No Social History Social Info Question Answer Notes Household: Marital Status: Single Number of Adults in household: 3 Number of Children in Household: 1 Level of Education: Finished High School Drug/Alcohol: Social Info Question Answer Notes Drugs Have you used drugs other than those for medical reasons in the past 12 months? No AUDIT-C (Standard) Points 1 Interpretation Positive Did you have a drink containing alcohol in the p ast year? Yes How often did you have six or more drinks on one occasion in the past year? Never (0 point) How many drinks did you have on a typical day when you were drinking in the past year? 1 or 2 drinks (0 point) How often did you have a drink containing alcohol in the past year? Monthly or less (1 point) Tobacco Use: Social Info Question Answer Notes Tobacco Control (Standard) Tobacco use: Nonsmoker Additional Details Category Social Info Options Details Miscellaneous: Occupation: Appliance Rep air Tech Problems Problem Type SNOMED Code ICD Code Onset Dates Problem Status W/U Status Risk Notes Problem Generalized anxiety disorder (23781298) WONG (generalized anxiety disorder) (F41.1) Active confirmed Problem Posttraumatic stress disorder (87742201) PTSD (post-traumatic stress disorder) (F43.10) Active confirmed Problem Attention deficit hyperactivity disorder (249698666) Attention deficit hyperactivity disorder (ADHD), unspecified ADHD type (F90.9) Active confirmed Problem Unable to concentrate (finding) (30383078) Difficulty concentrating (R41.840) Active confirmed Problem Sleep disorder (27819759) Sleep disorder (G47.9) Active confirmed Vital Signs Heart Rate 53 /min 12/06/2024 111/73 Height-cm 182.88 cm 12/06/2024 111/73 Blood pressure diastolic 73 mm Hg 12/06/2024 Weight-kg 111.13 kg 12/06/2024 Height 72 in 12/06/2024 Blood pressure systolic 111 mm Hg 12/06/2024 Weight 245 lbs 12/06/2024 111 BMI 33.22 kg/m2 12/06/2024 Procedures Procedure Date Ordered Date Performed Result Body Sit e ADHD Testing 11/08/2024 N/A Encounters Encounter Location Date Provider Diagnosis [address] [address] 11/08/2024 Tammi Galan WONG (generalized anxiety disorder) F41.1 ; Difficulty concentrating R41.840 ; PTSD (post-traumatic stress disorder) F43.10 and Sleep disorder G47.[address] [address] 11/14/2024 Charli Tavares Attention deficit hyperactivity disorder (ADHD), unspecified ADHD type F90.[address] [address] 12/06/2024 Tammi Galan WONG (generalized anxiety disorder) F41.1 ; PTSD (post-traumatic stress disorder) F43.10 ; Sleep disorder G47.9 and Attention deficit hyperactivity disorder (ADHD), unspecified ADHD type F90.[address] [address] 12/10/2024 Eva Mckeon WONG (generalized anxiety disorder) F41.1 ; PTSD (post-traumatic stress disorder) F43.10 ; Attention deficit hyperactivity disorder (ADHD), unspecified ADHD type F90.9 and Sleep disorder G47.[address] [address] 01/07/2025 Eva Mckeon [address] [address] 01/17/2025 Tammi Galan [address] [address] 11/08/2024 Tammi Galan Assessments Encounter Date Diagnosis (ICD Code) Assessment Notes Treatment Notes Treatment Clinical Notes Section Notes 11/08/2024 WONG (generalized anxiety disorder) (ICD-10 - F41.1) SSRI/SNRI side effects discussed including but not limited to, gastric upset, nausea, vomiting, diarrhea and/or constipation, weight changes, sexual side effects including loss of libido, increased suicidal thoughts/behavi ors in children and young adults, and serotonin syndrome. 11/08/2024 Difficulty concentrating (ICD-10 - R41.840) 11/14/2024 Attention deficit hyperactivity disorder (ADHD), unspecified ADHD type (ICD-10 - F90.9) Cognitive and Behavioral Assessment Summary Subject Information Age Group: 18-24 Assessment Date: November 14, 2024 ASRS v1.1 Part A Outcome: Indicative for ADHD Cognitive Markers Outside Typical Range: 3 markers 1. ADHD Behavioral Screening ASRS v1.1 Part A Score: 5 (Threshold > 3) Interpretation: This is indicative of ADHD, consistent with behavioral symptoms and in line with DSM-5 ADHD screening thresholds. 2. Cognitive Assessment Findings Outside Typical Range: 3 Cognitive Markers These indicate significant executive function challenges, with patterns highly consistent with ADHD. A. Planning (Spatial Planning) Score: 22 Percentile: 53 Interpretation: Average. This indicates adequate ability to strategize and plan despite difficulties in other executive areas. B. Spatial Working Memory (Token Search) Score: 4.25 Percentile: 6 Interpretation: Very low. This is a core weakness and reflects poor capacity for manipulating visual-spatial information, often associated with ADHD-related task inefficiency and distractibility. C. Attention (Feature Match) Errors: 5 Percentile: 94 Reaction Time: 3080ms (75th percentile) Impulsivity: Less accurate, but not faster Interpretation: Increased attentional errors despite slower response speed indicates inattention rather than impulsivity, consistent with ADHD inattentive presentation. D. Response Inhibition (Double Trouble) Errors: 15 Percentile: 94 Reaction Time: 1943ms (39th percentile) Interference Ratios: Errors: 2.33 (48th percentile) Reaction Time: 0.89 (5th percentile) Interpretation: Poor performance in inhibiting incorrect responses, particularly with reaction time under interference, shows deficits in cognitive control and mental flexibility. E. Sustained Attention (SART) Commission Errors: 15 (borderline high) Omission Errors: 1 (well within normal range) Reaction Time Variability: 182ms (73rd percentile) Slowing After Errors: -30ms (28th percentile) Interpretation: Elevated commission errors and limited error-based adjustment suggest mild sustained attention weaknesses, particularly in self-monitoring and pacing behavior. 3. Clinical Interpretation Pattern Summary: ASRS score supports behavioral evidence of ADHD. Three cognitive domains outside the typical range, especially: Working memory Response inhibition Attentional accuracy These results are strongly consistent with ADHD, likely of the inattentive or combined subtype. Impulsivity is not evident in reaction time measures, but the elevated error rates across attention and inhibition tasks suggest difficulty maintaining focus and suppressing distractions. 4. Recommendations Clinical Follow-up: Confirm findings with a comprehensive clinical interview focusing on developmental history, functional impairments, and contextual triggers. Do not rely solely on this battery for diagnostic confirmation. Medication Considerations: First consider non-stimulant medication (e.g., atomoxetine, guanfacine). If stimulant treatment is considered: Conduct routine urine drug screening Ensure frequent follow-up for dose adjustments Monitor blood pressure and weight Patient should not be using or abusing any street drugs, including marijuana Cognitive Training: Target working memory using apps like [employer] [place] or n-back tasks Strengthen response inhibition using Stroop-like or go/no-go tasks Practice sustained attention with mindfulness and paced reaction tasks Functional Strategies: Use structured task management systems (visual reminders, glyi-xc-ivyt lists) Introduce scheduled breaks and environment modifications to reduce distraction Cognitive-behavi oral therapy can assist in strengthening executive function habits 12/06/2024 WONG (generalized anxiety disorder) (ICD-10 - F41.1) SSRI/SNRI side effects discussed including but not limited to, gastric upset, nausea, vomiting, diarrhea and/or constipation, weight changes, sexual side effects including loss of libido, increased suicidal thoughts/behavi ors in children and young adults, and serotonin syndrome. 12/10/2024 WONG (generalized anxiety disorder) (ICD-10 - F41.1) 12/10/2024 PTSD (post-traumatic stress disorder) (ICD-10 - F43.10) 12/06/2024 PTSD (post-traumatic stress disorder) (ICD-10 - F43.10) referred to counseling 11/08/2024 PTSD (post-traumatic stress disorder) (ICD-10 - F43.10) referred to counseling 11/08/2024 Sleep disorder (ICD-10 - G47.9) History of sleep walking/ sleep talking throughout childhood. Recent (3 episodes) of sexsomnia- likely related to anxiety, stress, repressed trauma. Consider sleep study if does not resolve with medication, therapy treatment. 12/06/2024 Attention deficit hyperactivity disorder (ADHD), unspecified ADHD type (ICD-10 - F90.9) 12/06/2024 Sleep disorder (ICD-10 - G47.9) History of sleep walking/ sleep talking throughout childhood. Recent (3 episodes) of sexsomnia- likely related to anxiety, stress, repressed trauma. Consider sleep study if does not resolve with medication, therapy treatment. 12/10/2024 Attention deficit hyperactivity disorder (ADHD), unspecified ADHD type (ICD-10 - F90.9) 12/10/2024 Sleep disorder (ICD-10 - G47.9) 11/08/2024 Other Start sertraline 25mg daily for anxiety Patient educated on all medications including potential benefits, side effects, risks. Educated on proper dosing schedule and importance of compliance. Referred to therapy Schedule for ADHD evaluation to rule in or rule out diagnosis -Assessment and treatment plan reviewed with patient. -Compliance with treatment plan importance discussed. -Discussed the risks/benefits of this medication -Discussed medication side effects. -Contact office if symptoms worsen. -Discussed that it can take up to 6-8 weeks to see full therapeutic effects of psychotropic medications. -Crisis prevention hotline 988. 12/06/2024 Other ADHD evaluation reviewed, supportive of dx Start atomoxetine 25mg daily for ADHD management Responding well to sertraline- cont 25mg daily Patient educated on all medications including potential benefits, side effects, risks. Educated on proper dosing schedule and importance of compliance. -Assessment and treatment plan reviewed with patient. -Compliance with treatment plan importance discussed. -Discussed the risks/benefits of this medication -Discussed medication side effects. -Contact office if symptoms worsen. -Discussed that it can take up to 6-8 weeks to see full therapeutic effects of psychotropic medications. -Crisis prevention hotline 988. Plan Of Treatment Pending Test Test Name Order Date ADHD Testing 11/08/2024 Insurance Providers Payer Name Payer Address Payer Phone Subscriber Number Group Number Insured Name Patient Relationship to Insured Coverage Start Date Coverage End Date [facility] [address] [place] [address] [id number] Rickey Castellanos Self - patient is the insured Medical (General) History Medical History History ICD Code GERD HLD WONG Past Psychiatric History: Anxiety Disord er undefined abdominal aortic aneurysm: No atrial fibrillation: No chronic fatigue syndrome: No essential tremor: No hyperlipidemia: No hypertension: No Parkinson's disease: No restless leg syndrome: No stroke: No subdural hematoma: No type 1 diabetes mellitus: No type 2 diabetes mellitus: No vitamin B12 deficiency: No vitamin D deficiency: No
--- OUTSIDE RECORDS SUMMARY | 2025-01-18 19:34 | XMS_ITS | Clinical Summary ---
Author Organization [address] Address [address] [place] [address] Care Team Providers Care Parimutuel Ticket Seller Name Role Phone Silvia Lopez NP Primary Care Provider [phone] Allergies No known active allergies Medications No known medications Active Problems Problem Noted Date Diagnosed Date RUQ abdominal pain 05/26/2023 Assessment & Plan (05/26/2023 2:22 PM NURSE PRACTICAL): Acute right upper quadrant pain is resolved at present Abdomen is casing running machine tender to palpation Discussed gallbladder dysfunction and [...] 05/26/2023 Assessment & Plan (05/26/2023 2:19 PM NURSE PRACTICAL): BMI 30.09 Discussed diet and exercise Recommend [...] on file Legal Sex Male 9:18 AM NURSE PRACTICAL Gender Identity Not on file Sexual Orientation Not on file Obstetrics History Last Filed Vital Signs Vital Sign Reading Time Taken Comments Blood Pressure 120/80 05/26/2023 1:51 PM NURSE PRACTICAL Pulse 71 05/26/2023 1:51 PM NURSE PRACTICAL Temperature 36.6 C (97.8 F) 05/26/2023 1:51 PM NURSE PRACTICAL Respiratory Rate 16 05/05/2023 9:15 AM NURSE PRACTICAL Oxygen Saturation 98% 05/26/2023 1:51 PM NURSE PRACTICAL Inhaled Oxygen Concentration - - Weight 100.7 kg (221 lb 14.4 oz) 05/26/2023 1:51 PM NURSE PRACTICAL Height 182.9 cm (6' 0.01) 05/26/2023 1:51 PM CS T Body Mass Index 30.09 05/26/2023 1:51 PM NURSE PRACTICAL Plan of Treatment Health Maintenance Due Date Last Done Comments HPV Vaccines (3 - Male 2-dose series) 11/12/2014 07/26/2014, 2014 Meningococcal B Vaccine (2 of 2 - Bexsero SCDM 2-dose series) 04/07/2019 10/06/2018 Regular Well Visit/Exam 18-64 2019 DTaP/Tdap/Td Vaccine (7 - Td or Tdap) 12/02/2021 12/03/2011, 05/20/2006, 08/20/2002, Additional history exists Depression Screening 05/26/2024 05/26/2023 Covid-19 Vaccine (3 - season) 2024 10/07/2020, 09/16/2020 Influenza Vaccine (#1) 2024 2, 03/23/2006, 04/14/2005 Hepatitis C Screening 05/26/2025 Postpo marciano from 2001 (Provider's clinical decision) Hepatitis B Screening Completed 2001 , 2001, 2001, Additional history exists Pneumococcal vaccine <65 Completed 005, 05/18/2004, 11/16/2002, Additional history exists Varicella Vaccines Completed 05/20/2006, 08/20/2002 Care Teams Parimutuel Ticket Seller Relationship Specialty Start Date End Date Silvia Lopez NP [address] [facility] [address] [place] [address] PCP - General Director Of Individual Giving 05/26/23
--- OUTSIDE RECORDS SUMMARY | 2025-01-18 19:34 | XMS_ITS | Clinical Summary ---
Author Organization [facility] Address [address] [place] [address] Phone Care Team Providers Care Hog Trader Name Role Phone Jeramy Mccartney MD Primary [...] Comments Blood Pressure 124/84 06/12/2018 7:29 PM PARTS REPRESENTATIVE Pulse 96 06/12/2018 7:29 PM PARTS REPRESENTATIVE Temperature 37.4 C (99.4 F) 06/12/2018 6:50 PM PARTS REPRESENTATIVE Respiratory Rate 18 06/12/2018 7:29 PM PARTS REPRESENTATIVE Oxygen Saturation 98% 06/12/2018 7:29 PM PARTS REPRESENTATIVE Inhaled Oxygen Concentration - - Weight 71.2 kg (157 lb) 06/12/2018 6:50 PM PARTS REPRESENTATIVE Height 174 cm (5' 8.5) 06/12/2018 6:50 PM PARTS REPRESENTATIVE Body Mass Index 23.52 06/12/2018 6:50 PM PARTS REPRESENTATIVE Plan of Treatment Health Maintenance Due Date Last Done Comments Hepatitis C Virus (HCV) Screening 2001 Human Papillomavirus (HPV) Immunization (1 - Male 3-dose series) 2016 Meningococcal B Immunization (2 of 2 - Bexsero SCDM 2-dose series) 04/07/2019 10/06/2018 Influenza Immunization (#1) 2024 02/11/2012 SARS-COV-2 Immunization (3 - 2024- season) 2024 10/07/2020, 09/16/2020 Respiratory Syncytial Virus (RSV) Immunization [...] PLAN MEDICAID [employer] Care Teams Hog Trader Relationship Specialty Start Date End Date Jeramy Mccartney MD PCP - General Pediatrics 12/28/17
[2025-01-18 19:48] VITALS: BP 133/77; PULSE 80; RESP 18; TEMP 36.8; O2SAT 100
--- NOTE | 2025-01-18 20:27 | ED_ITS ---
HPI - General Adult General Chief complaint: Extremity Injury, Lower Stated complaint: toe pain Time Seen by Provider: 01/18/25 20:16 History of Present Illness HPI narrative: Patient is a 24-year-old male who presents emergency department this evening complaining of an ingrown toenail to his left great toe. Patient states that he has had this issue in the past. States that his dog scratched his left great toe consistent patient has noticed some erythema and some pustular drainage from this site was not sure if this is due to the ingrown hair or an infected toenail. Otherwise denies any additional symptoms or concerns. States that he has not followed up with Podiatry regarding this chronic condition. Related Data Allergies Allergy/AdvReac Type Severity Reaction Status Date / Time No Known Allergies Allergy Verified 01/18/25 19:53 Review of Systems Review of Systems: All systems are reviewed and are negative unless stated otherwise in the HPI. [facility] Past Medical History Medical History Encounter to establish care GERD (gastroesophageal reflux disease) Family History Family History Mother Alcoholism Grandparent Breast cancer Grandparent Heart disease Grandparent Cerebrovascular accident Myeloma Social History Social History Smoking status: Never smoker Exam Narrative: General: Alert, awake, afebrile, in no acute distress. HEENT: PERRL, no rhinorrhea, no post nasal drip, oropharynx clear. Neck: Trachea midline, no JVD, no lymphadenopathy. Cardiovascular: Regular rate and rhythm, no murmurs, rubs or gallops, no peripheral edema. Respiratory: Clear to auscultation bilaterally, no tachypnea, no wheezing, no rhonchi, no rubs, no respiratory distress. Abdomen: Soft, nontender, nondistended, no rebound, no guarding, no peritoneal signs. Musculoskeletal: Erythema and yellow pustular drainage noted to the medial aspect of the right great toe consistent with cellulitis, no ingrown toenail noted, no paronychia. Skin: No rashes or petechia, no signs of infection. Psychiatric: Alert and oriented, normal behavior and judgment for situation. Neurological: Alert and oriented to person, place, and time. Follows all commands. No focal deficits, speech is clear and fluent. Course Vital Signs Vital signs: Vital Signs Temperature 98.2 F 01/18/25 19:48 Pulse Rate 80 01/18/25 19:48 Respiratory Rate 18 01/18/25 19:48 Blood Pressure 133/77 01/18/25 19:48 Pulse Oximetry 100 01/18/25 19:48 Oxygen Delivery Room Air 01/18/25 19:48 Temperature 98.2 F 01/18/25 19:48 Pulse Rate 80 01/18/25 19:48 Respiratory Rate 18 01/18/25 19:48 Blood Pressure 133/77 01/18/25 19:48 Pulse Oximetry 100 01/18/25 19:48 Oxygen Delivery Room Air 01/18/25 19:48 Medical Decision Making MDM Narrative Medical decision making narrative: The patient was evaluated by myself in the emergency department. History is obtained from patient who is an independent historian and physical exam was performed. External medical records were reviewed at this time. Differential diagnosis considerations include paronychia, ingrown toenail, cellulitis, abscess. Comorbidities impacting this visit include history of recurrent ingrown toenail. I have evaluated and discussed social determinants of health with the patient that could potentially impact subsequent diagnosis and treatment plans. On repeat assessment of the patient, reevaluation revealed that the patient is doing well and is in no acute distress. Patient symptoms have improved since he arrived to our emergency department. Repeat vital signs were all reviewed and noted to be stable. Differential diagnosis and treatment plan were discussed with the patient at bedside. Patient agrees with discussion and after shared medical decision making agrees with discharge. All questions were answered to the patient's satisfaction. Patient will follow up with Podiatry in 3-5 days. A script for Bactrim was sent to patient's pharmacy to take as prescribed. Patient was provided with strict return precautions and instructed to return to the emergency department if any new or worsening symptoms develop. The patient was discharged in stable condition. Vital Signs Vital Signs: Vital Signs Temperature 98.2 F 01/18/25 19:48 Pulse Rate 80 01/18/25 19:48 Respiratory Rate 18 01/18/25 19:48 Blood Pressure 133/77 01/18/25 19:48 Pulse Oximetry 100 01/18/25 19:48 Oxygen Delivery Room Air 01/18/25 19:48 Temperature 98.2 F 01/18/25 19:48 Pulse Rate 80 01/18/25 19:48 Respiratory Rate 18 01/18/25 19:48 Blood Pressure 133/77 01/18/25 19:48 Pulse Oximetry 100 01/18/25 19:48 Oxygen Delivery Room Air 01/18/25 19:48 Discharge Plan Discharge Clinical Impression: Ingrowing toenail with infection Patient Disposition: Home Condition: Improved Instructions: Antibiotic Form, Ingrown Nail (ED) Additional Instructions: Please follow-up with 5 cc were provided with today within the next 3-5 days. Return to the ED if any new or worsening symptoms develop. Take the prescribed antibiotic as instructed. Patient Language: Mauritanian Prescriptions: New sulfamethoxazole-trimethoprim [Bactrim DS] 800-160 mg tablet 1 tablet PO Q12H 5 Days Qty: 10 0RF No Action meloxicam 7.5 mg tablet 7.5 mg PO DAILY PRN (Reason: chest wall pain) Qty: 30 1RF hydrocortisone 2.5 % cream 1 applic topical BID PRN (Reason: rash) Qty: 30 0RF Zepbound 2.5 mg/0.5 mL pen injector 2.5 mg subcut WEEKLY Qty: 2 0RF Rx Instructions: for 4 weeks hydroxyzine pamoate [Vistaril] 25 mg capsule 25 mg PO QID PRN (Reason: anxiety) Qty: 120 0RF omeprazole 40 mg capsule,delayed release(DR/EC) 40 mg PO DAILY Qty: 60 0RF Follow-up/Referrals: Kaycee Pisano APRN [Primary Care Provider, Internal Medicine] Kulwinder Bush Jr., DPM [Physician, Podiatry] - 3 Days Time of Disposition: 20:32
== END 2025-01-18 20:41 | disposition home or self-care (01) ==
PROVIDERS: Emergency Provider Emergency Medicine; PCP Nurse Practitioner Family
DX: L60.0 Ingrowing nail (principal); L08.9 Local infection of the skin and subcutaneous tissue, unspecified; K21.9 Gastro-esophageal reflux disease without esophagitis
CPT/HCPCS: 99283